=== PATIENT | female | born 1985 | race Two or more races ===

== ENCOUNTER 2024-08-23 19:24 | Emergency (ER) | payer MEDICAID ==
[~2024-08-23] VITALS: Ht 154.9 cm; Wt 60.0 kg
[2024-08-23 19:24] VITALS: BP 139/79; PULSE 110; RESP 18; O2SAT 96
== END 2024-08-23 23:46 | disposition left against medical advice (07) ==
LOC: ER 19:24
DX: M54.2 Cervicalgia (principal); M25.512 Pain in left shoulder; M25.511 Pain in right shoulder; Z53.21 Procedure and treatment not carried out due to patient leaving prior to being seen by health care provider; Y04.2XXA Assault by strike against or bumped into by another person, initial encounter; Y93.89 Activity, other specified; Y92.89 Other specified places as the place of occurrence of the external cause; Y99.8 Other external cause status